=== PATIENT | female | born 1980 | race African-American/Black ===

== ENCOUNTER 2016-12-03 00:36 | Emergency (ER) | payer OTHER ==
[~2016-12-03] VITALS: Ht 170.2 cm; Wt 120.0 kg
[2016-12-03 04:14] VITALS: BP 144/90
[2016-12-03] MEDS ORDERED: HYDROCODONE/ACETAMINOPHEN 5-325 MG TABLET PO ONE (06:00)
[2016-12-03] MEDS ORDERED: PredniSONE 20 MG TABLET PO ONE (06:00)
== END 2016-12-03 07:03 | disposition home or self-care (01) ==
LOC: EMS 00:39
DX: M65.20 Calcific tendinitis, unspecified site (principal)
CPT/HCPCS: 29240; 73030; 81025; 99284; J7512

== ENCOUNTER 2017-11-22 22:39 | Emergency (ER) | payer OTHER ==
[~2017-11-22] VITALS: Ht 170.2 cm; Wt 122.3 kg
[2017-11-22] MEDS ORDERED: MethylPREDNISolone SOD SUCC 125 MG/2 ML VIAL IM ONE (23:30)
[2017-11-23 00:38] VITALS: BP 127/65
[2017-11-23] MEDS ORDERED: HydrOXYzine HCL 50 MG TABLET PO ONE (00:45)
== END 2017-11-23 00:52 | disposition home or self-care (01) ==
LOC: EMS 22:40
DX: L29.9 Pruritus, unspecified (principal); Z98.890 Other specified postprocedural states
CPT/HCPCS: 96372; 99283; J2930

== ENCOUNTER 2021-05-28 10:08 | Emergency (ER) | payer OTHER ==
[~2021-05-28] VITALS: Ht 170.2 cm; Wt 95.5 kg
[2021-05-28 11:06] VITALS: BP 105/54
[2021-05-28 11:13] LABS: COVID AG,FIA SOURCE NASAL SWAB
== END 2021-05-28 11:45 | disposition home or self-care (01) ==
LOC: EMS 10:08
DX: Z20.822 Contact with and (suspected) exposure to COVID-19 (principal)
CPT/HCPCS: 87426; 99283; U0003

== ENCOUNTER 2021-09-06 18:14 | Emergency (ER) | payer OTHER ==
[~2021-09-06] VITALS: Ht 170.2 cm; Wt 90.5 kg
[2021-09-06 19:23] VITALS: BP 113/79
[2021-09-06 19:48] LABS: COVID AG,FIA SOURCE NASOPHARYNGEAL
== END 2021-09-06 19:30 | disposition home or self-care (01) ==
LOC: EMS 18:16
DX: Z20.822 Contact with and (suspected) exposure to COVID-19 (principal)
CPT/HCPCS: 87426; 99283; U0003